=== PATIENT | female | born 1950 | race Caucasian/White ===

== ENCOUNTER 2021-02-25 05:04 | Emergency (ER) | payer MEDICARE, MEDICAID ==
[~2021-02-25] VITALS: Ht 160 cm; Wt 50.0 kg
[~2021-02-25 05:04] MED LIST: ASCO125T PO; CALC-20 PO; CRAN200C5 PO; METH454P4 PO; MULT-1203; RALO60 PO
[2021-02-25] MEDS ORDERED: OMEP20 PO (05:23)
[2021-02-25] MEDS ORDERED: FLUT16H NASAL (05:23)
[2021-02-25 08:58] VITALS: BP 129/65
== END 2021-02-25 09:00 | disposition home or self-care (01) ==
LOC: EMS 05:05
DX: S00.93XA Contusion of unspecified part of head, initial encounter (principal); Z88.8 Allergy status to other drugs, medicaments and biological substances; Z88.1 Allergy status to other antibiotic agents; Z91.013 Allergy to seafood; W19.XXXA Unspecified fall, initial encounter; Y93.89 Activity, other specified; Y92.89 Other specified places as the place of occurrence of the external cause; Y99.8 Other external cause status
CPT/HCPCS: 70450; 71250; 72125; 99285